=== PATIENT | female | born 1970 | race Caucasian/White ===

== ENCOUNTER 2025-04-02 16:58 | Inpatient (IN) | payer OTHER, MEDICAID ==
[~2025-04-02] VITALS: Ht 165.1 cm; Wt 89.0 kg
[2025-04-02] MEDS ORDERED: ZOLPIDEM TARTRATE 10 MG TABLET PO PRN (18:15)
[2025-04-02 18:26] LABS: COVID AG,FIA SOURCE NASAL SWAB
[2025-04-02 18:50] LABS: SARS-COV2 (COVID) ANTIGEN,FIA Negative (Negative)
[2025-04-03] VITALS (7 sets, daily range): BP systolic 131–139; BP diastolic 93–105; PULSE 98–100; RESP 17–19; TEMP 97.8; O2SAT 98–99
[2025-04-03] MEDS ORDERED: IBUPROFEN 600 MG TABLET PO PRN (05:30)
[2025-04-03] MEDS ORDERED: BACITRACIN 28 GM OINTMENT TP PRN (05:30)
[2025-04-03] MEDS ORDERED: DOCUSATE SODIUM 100 MG CAPSULE PO PRN (05:30)
[2025-04-03] MEDS ORDERED: BENZOCAINE/MENTHOL [CEPACOL] LOZENGE PO PRN (05:30)
[2025-04-03] MEDS ORDERED: MAG HYDROX/ALUMINUM HYD/SIMETH ES 30 ML SUSPENSION UDCUP PO PRN (05:30)
[2025-04-03] MEDS ORDERED: MAGNESIUM HYDROXIDE SUSPENSION 30 ML UDCUP PO PRN (05:30)
[2025-04-03] MEDS ORDERED: LOPERAMIDE HCL 2 MG CAPSULE PO PRN (05:30)
[2025-04-03] MEDS ORDERED: ONDANSETRON 4 MG TABLET PO PRN (05:30)
[2025-04-03] MEDS ORDERED: PETROLATUM,WHITE 28 GM JELLY TP PRN (05:30)
[2025-04-03] MEDS ORDERED: ALBUTEROL SULFATE HFA 90 MCG/PUFF 8 GM INHALER IH PRN (05:30)
[2025-04-03] MEDS: HYDROCODONE/ACETAMINOPHEN 10-325 MG TABLET PO PRN (14:23)
[2025-04-03] MEDS: NORTRIPTYLINE HCL 25 MG CAPSULE PO SCH (21:20)
[2025-04-04 01:00] VITALS: RESP 20
[2025-04-04 02:01] VITALS: RESP 18
[2025-04-04 08:23] VITALS: BP 123/93; PULSE 99; RESP 16; TEMP 97.9; O2SAT 98
[2025-04-04 10:35] VITALS: BP 115/87; RESP 16; O2SAT 100
[2025-04-04] MEDS: ACETAMINOPHEN 325 MG TABLET PO PRN (10:35)
[2025-04-04 23:00] VITALS: BP 103/85; PULSE 82; RESP 16; TEMP 98; O2SAT 98
[2025-04-04 23:31] VITALS: RESP 16
[2025-04-05 00:31] VITALS: RESP 16
[2025-04-05 06:24] VITALS: RESP 16
[2025-04-05 08:38] VITALS: BP 98/80; PULSE 100; RESP 16; TEMP 98.2; O2SAT 100
[2025-04-05 09:15] VITALS: BP 108/73; PULSE 82; RESP 16; TEMP 98.3; O2SAT 100
[2025-04-05 16:45] VITALS: BP 112/74; PULSE 84; RESP 17; TEMP 97.8
[2025-04-05 20:21] VITALS: BP 107/79; PULSE 93; RESP 18; TEMP 97.8; O2SAT 98
[2025-04-06] MEDS: HYDROCODONE/ACETAMINOPHEN 10-325 MG TABLET PO PRN (00:23)
[2025-04-06 00:39] VITALS: BP 107/71; PULSE 87; RESP 18; TEMP 98.3; O2SAT 98
[2025-04-06 01:23] VITALS: RESP 18
[2025-04-06 08:16] VITALS: BP 106/86; PULSE 88; RESP 16; TEMP 97.9; O2SAT 98
[2025-04-06] MEDS: DICLOFENAC SODIUM 50 MG DR TABLET PO PRN (09:03)
[2025-04-06 09:07] VITALS: RESP 18
[2025-04-06] MEDS: OMEPRAZOLE 20 MG CAPSULE PO PRN (09:24)
[2025-04-06 09:38] LABS: PLATELET COUNT (AUTO) 367 K/uL (150-450); RED BLOOD CELL COUNT(AUTO) 4.18 MIL/uL (4.00-5.20); RED CELL DISTRIBUTION WIDTH 13.6 % (11.5-14.5); WHITE BLOOD COUNT (AUTO) 5.5 K/uL (4.5-11.0)
[2025-04-06 10:07] VITALS: RESP 17
[2025-04-06] MEDS ORDERED: NORT25 PO (10:44)
[2025-04-06] MEDS ORDERED: ARIP5TAB37 PO (10:45)
[2025-04-06] MEDS ORDERED: AMLO-257 PO (10:46)
[2025-04-06] MEDS ORDERED: FLUO20SO24 PO (10:46)
[2025-04-06] MEDS ORDERED: ATEN-73 PO (10:47)
[2025-04-06] MEDS ORDERED: FLUO-418 PO (10:49)
[2025-04-06 13:15] LABS: CALCIUM, TOTAL 8.7 mg/dL (8.8-10.5); CREATININE 0.69 mg/dL (0.60-1.30); GLOMERULAR FILTR. RATE CALC > 60 mL/min (>60); GLUCOSE,RANDOM 103 mg/dL (70-110); SODIUM SERUM 138 mmol/L (136-145); UREA NITROGEN, BLOOD 12 mg/dL (7-18)
[2025-04-06 13:16] LABS: ALCOHOL, BLOOD (SERUM) < 3 mg/dL (0-10)
[2025-04-06 14:08] LABS: CHOL/HDL RATIO 3.1 (3.9-5.7); LDL CHOL (CALC.) 103 mg/dL (0-130)
== END 2025-04-06 15:43 | disposition home or self-care (01) | DRG 885 ==
LOC: EMS 16:58 → B3A 21:19
PROVIDERS: ADMIT Psychiatry & Neurology Psychiatry; ATTEND Psychiatry & Neurology Psychiatry
DX: F20.9 Schizophrenia, unspecified (principal); K59.00 Constipation, unspecified; M54.9 Dorsalgia, unspecified; G89.29 Other chronic pain; E66.9 Obesity, unspecified; F41.9 Anxiety disorder, unspecified; G47.00 Insomnia, unspecified; Z20.822 Contact with and (suspected) exposure to COVID-19; I10 Essential (primary) hypertension; Z68.32 Body mass index [BMI] 32.0-32.9, adult
CPT/HCPCS: 80048; 80061; 83036; 85025; G0480